=== PATIENT | male | born 1960 | race Caucasian/White ===

== ENCOUNTER 2024-08-08 07:42 | Day surgery (SDC) | payer OTHER ==
[2024-08-08] MEDS ORDERED: fentaNYL 100 MCG/2 ML SDV ONE (08:12)
[2024-08-08] MEDS ORDERED: Propofol 200 MG/20 ML SDV ONE ×2 (08:12→09:31)
[2024-08-08] MEDS ORDERED: Midazolam 1 MG/ML 2 ML SDV ONE (08:12)
[2024-08-08] MEDS: Lactated Ringers 1,000 ML IV SCH (08:38)
== END 2024-08-08 11:00 | disposition home or self-care (01) ==
LOC: JP.SDS 07:42
PROVIDERS: ATTEND Surgery
DX: Z12.11 Encounter for screening for malignant neoplasm of colon (principal); D12.3 Benign neoplasm of transverse colon; K62.1 Rectal polyp; K57.30 Diverticulosis of large intestine without perforation or abscess without bleeding; I10 Essential (primary) hypertension; E11.9 Type 2 diabetes mellitus without complications
CPT/HCPCS: 00811; 45380; 88305; J2250; J2704; J3010; J7120